=== PATIENT | male | born 1955 | race Caucasian/White ===

== ENCOUNTER 2018-12-22 11:20 | Emergency (ER) | payer MEDICAID ==
[~2018-12-22] VITALS: Ht 175.3 cm; Wt 74.8 kg
[~2018-12-22 11:20] MED LIST: CARB200T PO; MECL-87 PO; PHEN100C70 PO
[2018-12-22 12:02] LABS: Basophils # (auto) 0.1 uL; Basophils % (auto) 1.2 % (0.0-2.0); Eosinophils # (auto) 0.2 uL; Eosinophils % (auto) 2.2 % (0.0-7.0); Hematocrit 42.5 % (41.0-53.0); Hemoglobin 14.7 g/dL (13.5-17.5); Lymphocytes # (auto) 1.8 uL; Lymphocytes % (auto) 18.6 % (10.0-50.0); Mean Corpuscular Hemoglobin 34.1 pg (28.0-32.0); Mean Corpuscular Hgb Conc. 34.5 g/dL (32.0-36.0); Mean Corpuscular Volume 98.7 fL (80.0-100.0); Monocytes # (auto) 0.6 uL; Monocytes % (auto) 6.7 % (0.0-12.0); Neutrophils # (auto) 6.7 uL; Neutrophils % (auto) 71.3 % (37.0-80.0); Nucleated Red Blood Cells % 0.1 %; Platelet Count (auto) 317 10^3/uL (140-450); Red Cell Distribution Width 14.7 % (11.8-14.3); White Blood Cell 9.4 10^3/uL (4.4-10.8)
[2018-12-22 12:33] LABS: Alanine Aminotransferase 331 U/L (16-61); Anion Gap 10 (5-15); Aspartate Aminotransferase 231 U/L (15-37); BUN/Creatinine Ratio 12.2; Blood Urea Nitrogen 10 mg/dL (7-18); Calcium 7.3 mg/dL (8.5-10.1); Carbon Dioxide 21 mmol/L (21-32); Chloride 106 mmol/L (98-107); GFR African American 122 mL/min; GFR Non-African American 101 mL/min; Glucose 74 mg/dL (74-106); Potassium 4.1 mmol/L (3.5-5.1); Sodium 137 mmol/L (136-145)
[2018-12-22 12:37] LABS: Alkaline Phosphatase 162 U/L (45-117); Bilirubin, Total 0.3 mg/dL (0.2-1.0); Total Protein 7.3 g/dL (6.4-8.2)
[2018-12-22] MEDS ORDERED: DEXTROSE 50% SYRINGE 50 ML IV ONE (13:09)
[2018-12-22] MEDS ORDERED: DEXTROSE (50%) 50ML SYRG IV ONE (13:30)
[2018-12-22 14:49] VITALS: BP 108/62
[2018-12-22 15:21] LABS: Amphetamine Screen, Urine POSITIVE (NEGATIVE); Barbiturate Scree,Urine NEGATIVE (NEGATIVE); Benzodiazephine Screen, Urine NEGATIVE (NEGATIVE); Cannabinoid Screen, Urine NEGATIVE (NEGATIVE); Cocaine Screen, Urine NEGATIVE (NEGATIVE); Opiate Scree,Urine NEGATIVE (NEGATIVE); Phencyclidine Screen, Urine NEGATIVE (NEGATIVE)
== END 2018-12-22 18:19 | disposition home or self-care (01) ==
LOC: ER 11:20 → EDBD 11:20 → ER 18:19
DX: E86.0 Dehydration (principal); R56.9 Unspecified convulsions; F10.10 Alcohol abuse, uncomplicated; R42 Dizziness and giddiness; R51 Headache
CPT/HCPCS: 36415; 70450; 80053; 80307; 80320; 82962; 84484; 85025